=== PATIENT | male | born 1995 | race Asian ===

== ENCOUNTER 2017-12-01 04:50 | Emergency (ER) | payer BC ==
[~2017-12-01] VITALS: Ht 172.7 cm; Wt 74.8 kg
[2017-12-01 05:01] VITALS: TEMP 37; Ht 172.7 cm; Wt 74.8 kg
[2017-12-01] MEDS ORDERED: DOXYCYCLINE HYCLATE 100 MG CAP PO STA (06:40)
[2017-12-01] MEDS ORDERED: CEFTRIAXONE SOD 350MG/ML 1 GM VIAL IM ONE (06:45)
[2017-12-01] MEDS ORDERED: DOXY100C PO (06:52)
[2017-12-01 07:02] VITALS: BP 122/79; PULSE 80; O2SAT 97
--- NOTE | 2017-12-01 07:20 | DIAGNOSTIC IMAGING REPORT ---
TESTICULAR ULTRASOUND HISTORY: left testicle pain COMPARISON: None. FINDINGS: Right testis: 5.3 x 2.5 x 3.1 cm. A 3 mm scrotal calcification is noted. There are no intratesticular masses. Normal color flow. No hydrocele. The epididymis is unremarkable. Left testis: 4.4 x 2.4 x 3.2 cm. No testicular masses. Small complex left hydrocele. Increased color flow within the left testis. There is also a thickened left epididymis demonstrating increased color flow. Left-sided varicocele. IMPRESSION: 1. Left-sided epididymoorchitis. 2. Small complex left hydrocele. 3. Left-sided varicocele. Electronically signed by: Aroldo Archer M.D. 12/01/2017 7:18 AM Dictated Date/Time: 12/01/2017 7:17 AM
--- NOTE | 2017-12-02 01:16 | EMERGENCY ROOM VISIT NOTE ---
History First contact with patient: 05:04 Chief Complaint: TESTICULAR PAIN Stated Complaint: LEFT TESTICLE SWOLLEN EXTREME PAIN History of Present Illness The patient is a 22 year old male who presents to the Emergency Room with complaints of left testicle pain worsening over the past one day. The patient states that he has had intermittent episodes like this in the past, but not to this severity. He took 400 mg ibuprofen at home which seemed to have helped a small amount. He is not having urethral drainage or discharge. He is not currently sexually active and no fevers or chills. No abdominal pain. He is been using the bathroom is normal. He rates his discomfort a 7/10. Review of Systems More than 10 systems were reviewed and otherwise negative with the exception of history of present illness. Past Medical/Surgical History No chronic medical disease Family History No pertinent family history Social History Smoking Status: Never Smoker Occupation Status: [employer] student Current/Historical Medications Scheduled Doxycycline Hyclate (Vibramycin), 100 MG PO BID Physical Exam Vital Signs Date Time Temp Pulse Resp B/P (MAP) Pulse Ox O2 Delivery O2 Flow Rate FiO2 12/01/17 07:02 80 20 122/79 97 12/01/17 05:01 37.0 92 20 127/84 96 Room Air Physical Exam VITALS: Vitals are noted on the nurse's note and reviewed by myself. Vital signs stable. GENERAL: Well-developed, well-nourished, male, who is in no acute distress and resting comfortably. Patient is cooperative with the examination. HEART: Regular rate and rhythm without murmurs gallops or rubs. LUNGS: Clear to auscultation bilaterally without wheezes, rales or rhonchi. No retractions or accessory muscle use. ABDOMEN: Positive normal bowel sounds x 4. Soft, nontender, without masses or organomegaly. No guarding or rebound tenderness. : Normal-appearing external male genitalia with circumcised phallus. No urethral drainage or discharge. There is positive left testicular tenderness posteriorly and laterally. No obvious mass noted. No right testicle tenderness. Medical Decision & Procedures ER Provider Diagnostic Interpretation: TESTICULAR ULTRASOUND HISTORY: left testicle pain COMPARISON: None. FINDINGS: Right testis: 5.3 x 2.5 x 3.1 cm. A 3 mm scrotal calcification is noted. There are no intratesticular masses. Normal color flow. No hydrocele. The epididymis is unremarkable. Left testis: 4.4 x 2.4 x 3.2 cm. No testicular masses. Small complex left hydrocele. Increased color flow within the left testis. There is also a thickened left epididymis demonstrating increased color flow. Left-sided varicocele. IMPRESSION: 1. Left-sided epididymoorchitis. 2. Small complex left hydrocele. 3. Left-sided varicocele. Medications Administered Medications (Trade) Dose Ordered Sig/Talib Route Start Time Stop Time Status Last Admin Dose Admin Ceftriaxone Sodium (Rocephin Im) 1,000 mg NOW ONCE IM 12/01/17 06:45 12/01/17 06:46 DC 12/01/17 06:45 1,000 MG Doxycycline Hyclate (Vibramycin Cap) 100 mg NOW STAT PO 12/01/17 06:40 12/01/17 06:42 DC 12/01/17 06:40 100 MG ED Course Physical exam and history were performed. Nursing notes, EMR, and Medication List were personally reviewed. Patient appears to have left testicle pain tonight. The patient does not have significant findings on exam. Ultrasound was performed and is consistent with epididymoorchitis. The patient was given IM Rocephin and oral doxycycline. He is to follow-up with his primary care physician this week for further care and management. He is to continue doxycycline for the next 10 days. He voiced understanding and rated his discomfort a 4/10 at departure. The chart was completed utilizing [employer] Voice Recognition Software. Grammatical errors, random word insertions, pronoun errors, and incomplete sentences are an occasional consequence of this system due to software limitations, ambient noise, and hardware issues. Any formal questions or concerns about the content, text, or information contained within the body of this dictation should be directly addressed to the provider for clarification. . Medical Decision Differential diagnosis: Etiologies such as torsion, mass, infection, hernia, hydrocele, epididymitis, trauma, intra-abdominal process, as well as others were entertained. Impression Primary Impression: Epididymoorchitis Departure Information Dispostion Home / Self-Care Condition GOOD Prescriptions Doxycycline Hyclate (VIBRAMYCIN) 100 Mg Cap 100 MG PO BID for 10 Days, #20 CAP Prov: Дмитрий Rapp PA-C 12/01/17 Forms HOME CARE DOCUMENTATION FORM, IMPORTANT VISIT INFORMATION Patient Instructions My [facility] Additional Instructions You were seen and evaluated today on an emergency basis only. This is not a substitute for, or an effort to provide, complete comprehensive medical care. It is not possible to recognize and treat all injuries or illnesses in a single emergency department visit. For this reason it is recommended that you followup with [facility] for any ongoing or persistent symptoms. Take doxycycline 100 mg twice daily for the next 10 days. Take this medication with food. You are welcome to return to the emergency department anytime with new, worsening, or concerning symptoms.
== END 2017-12-01 07:02 | disposition home or self-care (01) ==
LOC: C.EDB 04:52
DX: N45.3 Epididymo-orchitis (principal)